=== PATIENT | female | born 1950 | race Two or more races ===

== ENCOUNTER 2020-12-02 08:21 | Outpatient (CLI) | payer OTHER | END 2020-12-02 08:30 | disposition home or self-care (01) | LOC: RX STUDY 08:21 | PROVIDERS: ATTEND Internal Medicine Endocrinology, Diabetes & Metabolism | DX: R13.19 Other dysphagia (principal); E04.1 Nontoxic single thyroid nodule ==

== ENCOUNTER 2023-02-10 08:30 | Outpatient (CLI) | payer OTHER | END 2023-02-10 08:33 | disposition home or self-care (01) | LOC: SONOGRAMA 08:30 | PROVIDERS: ATTEND Pathology Anatomic Pathology & Clinical Pathology | DX: D34 Benign neoplasm of thyroid gland (principal); E04.9 Nontoxic goiter, unspecified ==